=== PATIENT | male | born 1970 | race Caucasian/White ===

== ENCOUNTER → 2018-08-26 | Outpatient (CLI) | payer BC ==
--- NOTE | 2018-08-27 14:57 | MR ---
EXAMINATION TYPE: MR knee RT wo con DATE OF EXAM: 08/26/2018 COMPARISON: None HISTORY: Rt knee pain/lateral side x 1 mo, no trauma TECHNIQUE: Multiplanar, multisequence imaging of the right knee is performed without IV contrast. FINDINGS: MEDIAL MENISCUS: Some linear increased signal is present within the posterior horn the medial meniscu s, questionable extension to the articular surface seen on sagittal image 9, abnormal signal may be d egenerative, there is pseudoextrusion of the medial meniscus LATERAL MENISCUS: Anterior and posterior horns are intact without tear. CRUCIATE LIGAMENTS: The anterior and posterior cruciate ligaments are intact and unremarkable. COLLATERAL LIGAMENTS: The medial collateral ligament and lateral collateral ligament complex are inta ct and unremarkable. EXTENSOR MECHANISM: Visualized quadriceps and patellar tendons are intact. EFFUSION: There is a small knee joint effusion.. 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 OTHER: There is some subcutaneous edema. IMPRESSION: Osteoarthritis. Probable degenerative signal within the medial meniscus, there is pseudoextrusion, di fficult to exclude undersurface meniscal tear
== END | disposition home or self-care (01) ==
LOC: RADMRIMAIN 16:57
PROVIDERS: ATTEND Family Medicine
DX: M17.11 Unilateral primary osteoarthritis, right knee (principal)